=== PATIENT | male | born 1955 ===

== ENCOUNTER 2023-07-20 08:00 | Day surgery (SDC) | payer OTHER ==
[~2023-07-20 08:00] MED LIST: CHILDREN'S ASPI81 MG PO; CRESTOR5 MG PO; FAMOTI PO; GLUMETZA500 MG PO; OMEPRAZ PO
[2023-07-20] MEDS ORDERED: OXYC1TAB9 PO (12:53)
== END 2023-07-20 17:25 | disposition home or self-care (01) ==
LOC: CIR.AMB 08:00
PROVIDERS: ATTEND Surgery
DX: K64.2 Third degree hemorrhoids (principal); K62.5 Hemorrhage of anus and rectum; K64.4 Residual hemorrhoidal skin tags; K64.8 Other hemorrhoids; K62.89 Other specified diseases of anus and rectum; Z20.822 Contact with and (suspected) exposure to COVID-19; I10 Essential (primary) hypertension